=== PATIENT | male | born 1960 | race Caucasian/White ===

== ENCOUNTER → 2018-04-02 | Outpatient (CLI) | payer OTHER | END | disposition home or self-care (01) | LOC: LAB EV 13:41 → LAB SHORT 13:41 | DX: J02.9 Acute pharyngitis, unspecified (principal) | CPT/HCPCS: 87070 ==

== ENCOUNTER → 2018-10-06 | Outpatient (CLI) | payer OTHER | LOC: LAB SHORT 18:28 → LAB EV 18:28 | DX: T81.89XA Other complications of procedures, not elsewhere classified, initial encounter (principal) | CPT/HCPCS: 87070; 87075; 87076; 87205 ==

== ENCOUNTER 2023-07-10 11:49 | Day surgery (SDC) | payer OTHER ==
[~2023-07-10] VITALS: Ht 180.3 cm; Wt 93.5 kg
[2023-07-10] MEDS ORDERED: OMEP20ER (12:48)
[2023-07-10] MEDS ORDERED: MULVITA (12:48)
[2023-07-10] MEDS ORDERED: VITAMIN D325 MC3 (12:48)
[2023-07-10] MEDS ORDERED: ROSU5 (12:49)
[2023-07-10 15:44] VITALS: BP 136/48
== END 2023-07-10 15:38 | disposition home or self-care (01) ==
LOC: ORSCSDS 11:49
PROVIDERS: Internal Medicine Gastroenterology
PROC: 0DBL8ZX Excision of Transverse Colon, Via Natural or Artificial Opening Endoscopic, Diagnostic (ICD-10-PCS; principal; 2023-07-10 13:00)
PROC: 0DBM8ZX Excision of Descending Colon, Via Natural or Artificial Opening Endoscopic, Diagnostic (ICD-10-PCS; principal; 2023-07-10 13:00)
PROC: 0DB58ZX Excision of Esophagus, Via Natural or Artificial Opening Endoscopic, Diagnostic (ICD-10-PCS; 2023-07-10 13:00)
DX: Z12.11 Encounter for screening for malignant neoplasm of colon (principal); Z86.010 Personal history of colon polyps; K21.9 Gastro-esophageal reflux disease without esophagitis; D12.3 Benign neoplasm of transverse colon; D12.4 Benign neoplasm of descending colon; K22.70 Barrett's esophagus without dysplasia; K44.9 Diaphragmatic hernia without obstruction or gangrene; E78.5 Hyperlipidemia, unspecified; Z68.30 Body mass index [BMI] 30.0-30.9, adult; Z87.891 Personal history of nicotine dependence; K57.30 Diverticulosis of large intestine without perforation or abscess without bleeding; K64.8 Other hemorrhoids; Z79.899 Other long term (current) drug therapy
CPT/HCPCS: 88305; J0461; J1980; J2001; J2405; J2704; J7120; Q9968